=== PATIENT | female | born 1950 | race Asian ===

== ENCOUNTER 2017-09-15 18:40 | Emergency (ER) | payer SELFPAY ==
[~2017-09-15] VITALS: Ht 165.1 cm; Wt 90.9 kg
[2017-09-15 19:12] VITALS: BP 179/100
[2017-09-15 19:13] LABS: GLUCOSE,POINT OF CARE 164 MG/DL (70-110)
== END 2017-09-15 19:12 | disposition left against medical advice (07) ==
LOC: EMS 18:41
DX: Z53.21 Procedure and treatment not carried out due to patient leaving prior to being seen by health care provider (principal)
CPT/HCPCS: 82962

== ENCOUNTER 2020-01-01 14:55 | Inpatient (IN) | payer OTHER ==
[~2020-01-01] VITALS: Ht 160 cm; Wt 82.5 kg
[2020-01-01] MEDS ORDERED: NITR0.3T12 SL (15:19)
[2020-01-01] MEDS ORDERED: ATOR40TA28 PO (15:19)
[2020-01-01] MEDS ORDERED: ASPI-728 PO (15:19)
[2020-01-01] MEDS ORDERED: GLIP10 PO (15:19)
[2020-01-01] MEDS ORDERED: CLOP75TA3 PO (15:19)
[2020-01-01] MEDS ORDERED: MECL-169 PO (15:19)
[2020-01-01] MEDS ORDERED: ACET500C4 PO (15:19)
[2020-01-01] MEDS ORDERED: GABA-1181 PO (15:19)
[2020-01-01] MEDS ORDERED: LISI-662 PO (15:19)
[2020-01-01] MEDS ORDERED: PANTOPRAZOLE SODIUM 40 MG/VIAL IVP ONE (15:45)
[2020-01-01 16:04] LABS: BASOPHILS % (AUTO) 1.2 % (0.0-2.0); HEMATOCRIT 42.1 % (36-46); HEMOGLOBIN 13.2 g/dL (12.0-16.0); LYMPHOCYTES # (AUTO) 1.6 K/uL (1.0-4.8); LYMPHOCYTES % (AUTO) 27.4 % (22.0-44.0); MEAN CORPUSCULAR HEMOGLOBIN 24.5 pg (26.0-34.0); MEAN CORPUSCULAR HGB CONC 31.5 G/dL (31.0-37.0); MEAN CORPUSCULAR VOLUME 78 fL (80-100); MONOCYTES # (AUTO) 0.4 K/uL (0.1-1.0); MONOCYTES % (AUTO) 7.4 % (2.0-9.0); NEUTROPHILS # (AUTO) 3.6 K/uL (1.8-7.7); PLATELET COUNT (AUTO) 240 K/uL (150-450); RED CELL DISTRIBUTION WIDTH 14.8 % (11.5-14.5)
[2020-01-01 16:09] LABS: ANION GAP 9 mmol/L (8-16); CALCIUM, TOTAL 8.6 mg/dL (8.8-10.5); CARBON DIOXIDE 29 mmol/L (22-29); CHLORIDE 107 mmol/L (98-107); CREATININE 0.72 mg/dL (0.60-1.30); GLOMERULAR FILTR. RATE CALC > 60 mL/min (>60); GLUCOSE,RANDOM 147 mg/dL (70-110); POTASSIUM 3.8 mmol/L (3.5-5.1); SODIUM SERUM 145 mmol/L (136-145); UREA NITROGEN, BLOOD 14 mg/dL (7-18)
[2020-01-01 16:18] LABS: PROTHROMBIN TIME 10.1 SEC (9.4-11.6)
[2020-01-01 16:26] LABS: APPEARANCE,URINE CLEAR (CLEAR); BILIRUBIN,URINE NEGATIVE (NEGATIVE); GLUCOSE, URINE (UA) NEGATIVE (NEGATIVE); KETONES,URINE NEGATIVE (NEGATIVE); LEUKOCYTE ESTERASE ,URINE TRACE (NEGATIVE); NITRATE,URINE NEGATIVE (NEGATIVE); OCCULT BLOOD,URINE NEGATIVE (NEGATIVE); PROTEIN,URINE SEE CONFIRM (NEGATIVE)
[2020-01-01 16:29] LABS: B-TYPE NATRIURETIC PEPTIDE 608 pg/mL (0-100)
[2020-01-01] MEDS ORDERED: DILTIAZEM HCL 5 MG/ML 5 ML VIAL IVP ONE ×2 (16:30→17:15)
[2020-01-01] MEDS ORDERED: NITR0.4T52 SL (16:34)
[2020-01-01 16:35] LABS: ALANINE AMINOTRANSFERASE 19 U/L (12-78); ALBUMIN 3.7 g/dL (3.4-5.0); ALKALINE PHOSPHATASE 77 U/L (46-116); ASPARTATE AMINOTRANSFERASE 23 U/L (15-37); BILIRUBIN,TOTAL 0.4 mg/dL (0.1-1.0); CREATINE KINASE, TOTAL ONLY 90 U/L (26-192); TOTAL PROTEIN, SERUM 7.5 g/dL (6.4-8.2)
[2020-01-01 17:14] LABS: RBC,URINE None Seen /HPF (0-2); SULFOSALICYLIC ACID,URINE 4+ (Negative)
[2020-01-01 17:15] LABS: BACTERIA,URINE None Seen /HPF (None Seen); SQUAMOUS EPITHELIAL CELL,UR Rare /LPF (None Seen); WBC,URINE 0-2 /HPF (0-5)
[2020-01-01] MEDS ORDERED: ACETAMINOPHEN 325 MG TABLET PO PRN (17:15)
[2020-01-01] MEDS ORDERED: INSULIN LISPRO 100 UNITS/ML SQ PRN (17:15)
[2020-01-01] MEDS ORDERED: DEXTROSE 50%-WATER 25 GM/50 ML SYRINGE IVP PRN (17:15)
[2020-01-01 18:10] LABS: THYROID STIMULATING HORMONE 1.21 uIU/mL (0.36-3.74)
[2020-01-01] MEDS ORDERED: DILTIAZEM HCL 30 MG TABLET PO ONE (18:15)
[2020-01-01] MEDS ORDERED: DIGOXIN 250 MCG/ML 2 ML AMP IVP ONE (19:15)
[2020-01-01 19:37] VITALS: BP 143/103
[2020-01-01] MEDS: ATORVASTATIN CALCIUM 20 MG TABLET PO SCH (20:20)
[2020-01-01] MEDS: APIXABAN 5 MG TABLET PO SCH (20:20)
[2020-01-01] MEDS: POTASSIUM CHLORIDE 8 MEQ ER TABLET PO SCH (20:20)
[2020-01-01] MEDS: DOCUSATE SODIUM 100 MG CAPSULE PO SCH (20:20)
[2020-01-01] MEDS ORDERED: CARVEDILOL 12.5 MG TABLET PO SCH (21:00)
[2020-01-01 23:48] VITALS: BP 138/99
[2020-01-02 04:10] VITALS: BP 156/98
[2020-01-02 05:30] LABS: GLUCOMETER DEV NAME(LOC) 5S.2A; GLUCOSE,POINT OF CARE 159 MG/DL (70-110)
[2020-01-02 07:15] LABS: GLUCOMETER DEV NAME(LOC) 5S.2A; GLUCOSE,POINT OF CARE 112 MG/DL (70-110)
[2020-01-02 07:18] VITALS: BP 140/88
[2020-01-02 07:19] LABS: BASOPHILS % (AUTO) 0.5 % (0.0-2.0); EOSINOPHILS % (AUTO) 1.4 % (1.0-6.0); HEMATOCRIT 44.8 % (36-46); HEMOGLOBIN 13.9 g/dL (12.0-16.0); LYMPHOCYTES # (AUTO) 1.5 K/uL (1.0-4.8); LYMPHOCYTES % (AUTO) 17.3 % (22.0-44.0); MEAN CORPUSCULAR HEMOGLOBIN 24.4 pg (26.0-34.0); MEAN CORPUSCULAR HGB CONC 31.1 G/dL (31.0-37.0); MEAN CORPUSCULAR VOLUME 78 fL (80-100); MONOCYTES # (AUTO) 0.5 K/uL (0.1-1.0); MONOCYTES % (AUTO) 5.9 % (2.0-9.0); NEUTROPHILS # (AUTO) 6.5 K/uL (1.8-7.7); NEUTROPHILS % (AUTO) 74.9 % (40.0-70.0); PLATELET COUNT (AUTO) 237 K/uL (150-450); RED BLOOD CELL COUNT(AUTO) 5.72 MIL/uL (4.00-5.20); RED CELL DISTRIBUTION WIDTH 14.7 % (11.5-14.5)
[2020-01-02 07:40] LABS: ALANINE AMINOTRANSFERASE 19 U/L (12-78); ALBUMIN 4.1 g/dL (3.4-5.0); ALKALINE PHOSPHATASE 88 U/L (46-116); ANION GAP 8 mmol/L (8-16); ASPARTATE AMINOTRANSFERASE 17 U/L (15-37); BILIRUBIN,TOTAL 0.9 mg/dL (0.1-1.0); CALCIUM, TOTAL 8.8 mg/dL (8.8-10.5); CARBON DIOXIDE 30 mmol/L (22-29); CHLORIDE 102 mmol/L (98-107); CREATININE 0.85 mg/dL (0.60-1.30); GLOMERULAR FILTR. RATE CALC > 60 mL/min (>60); GLUCOSE,RANDOM 127 mg/dL (70-110); POTASSIUM 3.5 mmol/L (3.5-5.1); SODIUM SERUM 140 mmol/L (136-145); UREA NITROGEN, BLOOD 12 mg/dL (7-18)
[2020-01-02] MEDS: FAMOTIDINE 20 MG TABLET PO SCH (08:52)
[2020-01-02] MEDS: GlipiZIDE 5 MG TABLET PO SCH ×2 (08:53→18:22)
[2020-01-02] MEDS: DOCUSATE SODIUM 100 MG CAPSULE PO SCH ×2 (08:53→20:02)
[2020-01-02] MEDS: LISINOPRIL 10 MG TABLET PO SCH (08:53)
[2020-01-02] MEDS ORDERED: FUROSEMIDE 20 MG/2 ML VIAL IVP ONE (09:00)
[2020-01-02] MEDS: POTASSIUM CHLORIDE 8 MEQ ER TABLET PO SCH (10:05)
[2020-01-02] MEDS: APIXABAN 5 MG TABLET PO SCH ×2 (10:05→20:59)
[2020-01-02] MEDS: CARVEDILOL 12.5 MG TABLET PO SCH ×2 (10:29→20:02)
[2020-01-02 11:36] VITALS: BP 153/97
[2020-01-02 15:49] VITALS: BP 159/102
[2020-01-02 17:15] LABS: GLUCOMETER DEV NAME(LOC) 5N.1; GLUCOSE,POINT OF CARE 124 MG/DL (70-110)
[2020-01-02 18:47] LABS: GLUCOMETER DEV NAME(LOC) 5N.1; GLUCOSE,POINT OF CARE 107 MG/DL (70-110)
[2020-01-02 19:58] VITALS: BP 135/96
[2020-01-02] MEDS: ATORVASTATIN CALCIUM 20 MG TABLET PO SCH (20:02)
[2020-01-02 23:33] VITALS: BP 141/87
[2020-01-03 00:07] LABS: GLUCOMETER DEV NAME(LOC) 5N.3; GLUCOSE,POINT OF CARE 118 MG/DL (70-110)
[2020-01-03 04:08] VITALS: BP 125/77
[2020-01-03] MEDS: GlipiZIDE 5 MG TABLET PO SCH (07:03)
[2020-01-03 07:43] VITALS: BP 137/104
[2020-01-03] MEDS: DOCUSATE SODIUM 100 MG CAPSULE PO SCH (10:58)
[2020-01-03] MEDS: FAMOTIDINE 20 MG TABLET PO SCH (10:58)
[2020-01-03] MEDS: POTASSIUM CHLORIDE 8 MEQ ER TABLET PO SCH (10:58)
[2020-01-03] MEDS: APIXABAN 5 MG TABLET PO SCH (10:58)
[2020-01-03] MEDS: LISINOPRIL 10 MG TABLET PO SCH (10:58)
[2020-01-03] MEDS: CARVEDILOL 12.5 MG TABLET PO SCH (10:59)
[2020-01-03 12:23] LABS: GLUCOMETER DEV NAME(LOC) 5N.3; GLUCOSE,POINT OF CARE 174 MG/DL (70-110)
[2020-01-03 12:23] LABS: GLUCOMETER DEV NAME(LOC) 5N.3; GLUCOSE,POINT OF CARE 104 MG/DL (70-110)
[2020-01-03] MEDS ORDERED: APIX5TAB PO (12:25)
[2020-01-03] MEDS ORDERED: CARV25 PO (12:33)
[2020-01-03] MEDS ORDERED: SPIR25 PO (12:34)
== END 2020-01-03 14:00 | disposition home or self-care (01) | DRG 308 ==
LOC: EMS 14:56 → 5S 17:13 → UNDOADMIN 18:07 → 5S 20:06 → 5N 01-02 10:20
PROVIDERS: ADMIT Internal Medicine; ATTEND Internal Medicine
DX: I48.91 Unspecified atrial fibrillation (principal); I50.21 Acute systolic (congestive) heart failure; E11.9 Type 2 diabetes mellitus without complications; Z20.828 Contact with and (suspected) exposure to other viral communicable diseases; E78.5 Hyperlipidemia, unspecified; I25.10 Atherosclerotic heart disease of native coronary artery without angina pectoris; Z79.82 Long term (current) use of aspirin; Z88.8 Allergy status to other drugs, medicaments and biological substances; I25.2 Old myocardial infarction; Z82.49 Family history of ischemic heart disease and other diseases of the circulatory system
CPT/HCPCS: 82271; 83735; 84443; 86850; 86900; 86901; 93005; 93306; 99291; C9113; J1160; J1940; J3490

== ENCOUNTER 2021-05-07 10:58 | Emergency (ER) | payer OTHER ==
[~2021-05-07] VITALS: Ht 165.1 cm; Wt 90.0 kg
[~2021-05-07 10:58] MED LIST: APIX5TAB PO; ATOR40TA28 PO; CARV25 PO; FURO-152 PO; GLIP10 PO; LISI-894 PO; NITR0.4T52 SL; SPIR-37 PO
[2021-05-07 11:33] LABS: APPEARANCE,URINE CLEAR (CLEAR); BILIRUBIN,URINE NEGATIVE (NEGATIVE); GLUCOSE, URINE (UA) NEGATIVE (NEGATIVE); KETONES,URINE NEGATIVE (NEGATIVE); LEUKOCYTE ESTERASE ,URINE NEGATIVE (NEGATIVE); NITRATE,URINE NEGATIVE (NEGATIVE); OCCULT BLOOD,URINE NEGATIVE (NEGATIVE); PH,URINE 5.5 (5.0-8.0); PROTEIN,URINE NEGATIVE (NEGATIVE); UROBILINOGEN,URINE 0.2 mg/dL (<=1.0)
[2021-05-07 11:34] LABS: BACTERIA,URINE None Seen /HPF (None Seen); RBC,URINE None Seen /HPF (0-2); WBC,URINE None Seen /HPF (0-5)
[2021-05-07 11:59] LABS: BASOPHILS % (AUTO) 0.8 % (0.0-2.0); EOSINOPHILS % (AUTO) 1.7 % (1.0-6.0); HEMATOCRIT 41.9 % (36-46); HEMOGLOBIN 13.5 g/dL (12.0-16.0); LYMPHOCYTES # (AUTO) 1.4 K/uL (1.0-4.8); LYMPHOCYTES % (AUTO) 29.2 % (22.0-44.0); MEAN CORPUSCULAR HEMOGLOBIN 26.2 pg (26.0-34.0); MEAN CORPUSCULAR HGB CONC 32.1 G/dL (31.0-37.0); MEAN CORPUSCULAR VOLUME 82 fL (80-100); MONOCYTES # (AUTO) 0.3 K/uL (0.1-1.0); NEUTROPHILS % (AUTO) 61.3 % (40.0-70.0); PLATELET COUNT (AUTO) 216 K/uL (150-450); RED BLOOD CELL COUNT(AUTO) 5.14 MIL/uL (4.00-5.20); RED CELL DISTRIBUTION WIDTH 15.7 % (11.5-14.5)
[2021-05-07 12:10] LABS: CALCIUM, TOTAL 8.1 mg/dL (8.8-10.5); CREATININE 1.38 mg/dL (0.60-1.30); POTASSIUM 3.7 mmol/L (3.5-5.1)
[2021-05-07 12:15] LABS: ALBUMIN 3.8 g/dL (3.4-5.0); BILIRUBIN,TOTAL 0.6 mg/dL (0.1-1.0)
[2021-05-07 13:46] VITALS: BP 133/98
== END 2021-05-07 13:58 | disposition home or self-care (01) ==
LOC: EMS 10:58
DX: R51.9 Headache, unspecified (principal); R42 Dizziness and giddiness; R06.02 Shortness of breath
CPT/HCPCS: 70450; 71045; 80053; 81001; 83690; 84484; 85025; 93005; 99285; 36415-L1; 36415-TC

== ENCOUNTER 2021-05-21 15:36 | Emergency (ER) | payer OTHER ==
[~2021-05-21] VITALS: Ht 165.1 cm; Wt 90.0 kg
[2021-05-21] MEDS ORDERED: MORPHINE SULFATE 2 MG/ML SYRINGE IVP ONE (16:00)
[2021-05-21 16:16] LABS: GLUCOMETER DEV NAME(LOC) ERT.5; GLUCOSE,POINT OF CARE 78 MG/DL (70-110)
[2021-05-21 16:25] LABS: BASOPHILS % (AUTO) 0.8 % (0.0-2.0); EOSINOPHILS % (AUTO) 2.5 % (1.0-6.0); HEMATOCRIT 40.6 % (36-46); LYMPHOCYTES # (AUTO) 1.7 K/uL (1.0-4.8); LYMPHOCYTES % (AUTO) 29.8 % (22.0-44.0); MEAN CORPUSCULAR HEMOGLOBIN 26.3 pg (26.0-34.0); MEAN CORPUSCULAR VOLUME 82 fL (80-100); MONOCYTES # (AUTO) 0.5 K/uL (0.1-1.0); MONOCYTES % (AUTO) 8.9 % (2.0-9.0); NEUTROPHILS # (AUTO) 3.4 K/uL (1.8-7.7); PLATELET COUNT (AUTO) 219 K/uL (150-450); RED BLOOD CELL COUNT(AUTO) 4.93 MIL/uL (4.00-5.20); RED CELL DISTRIBUTION WIDTH 15.7 % (11.5-14.5)
[2021-05-21 16:34] LABS: CREATININE 1.41 mg/dL (0.60-1.30)
[2021-05-21 16:40] LABS: ALBUMIN 3.8 g/dL (3.4-5.0); BILIRUBIN,TOTAL 0.4 mg/dL (0.1-1.0); TOTAL PROTEIN, SERUM 7.5 g/dL (6.4-8.2)
[2021-05-21 16:46] LABS: LACTIC ACID 0.9 mmol/L (0.4-2.0)
[2021-05-21 17:53] VITALS: BP 140/81
== END 2021-05-21 18:04 | disposition home or self-care (01) ==
LOC: EMS 15:41
DX: R10.13 Epigastric pain (principal); R19.7 Diarrhea, unspecified; R11.0 Nausea; I48.91 Unspecified atrial fibrillation; I25.10 Atherosclerotic heart disease of native coronary artery without angina pectoris; E11.9 Type 2 diabetes mellitus without complications; I25.2 Old myocardial infarction; I10 Essential (primary) hypertension; Z86.73 Personal history of transient ischemic attack (TIA), and cerebral infarction without residual deficits; Z88.8 Allergy status to other drugs, medicaments and biological substances; Z79.899 Other long term (current) drug therapy
CPT/HCPCS: 36415; 71045; 74176; 80053; 82962; 83605; 83690; 84484; 85025; 93005; 96374; 99285; J2270

== ENCOUNTER 2021-09-06 15:55 | Emergency (ER) | payer OTHER ==
[~2021-09-06] VITALS: Ht 165.1 cm; Wt 83.6 kg
[2021-09-06 16:27] VITALS: BP 103/67
[2021-09-06] MEDS ORDERED: CYCLOBENZAPRINE HCL 10 MG TABLET PO ONE (16:30)
[2021-09-06] MEDS ORDERED: LIDOCAINE 5% TRANSDERMAL PATCH TD ONE (16:30)
[2021-09-06] MEDS ORDERED: KETOROLAC TROMETHAMINE 30 MG/ML VIAL IM ONE (16:30)
[2021-09-06] MEDS ORDERED: CYCL10TA17 PO (17:34)
== END 2021-09-06 18:05 | disposition home or self-care (01) ==
LOC: EMS 15:58
DX: M62.838 Other muscle spasm (principal); M54.6 Pain in thoracic spine; M54.2 Cervicalgia; I48.91 Unspecified atrial fibrillation; I25.10 Atherosclerotic heart disease of native coronary artery without angina pectoris; E11.9 Type 2 diabetes mellitus without complications; I10 Essential (primary) hypertension; I25.2 Old myocardial infarction; Z79.899 Other long term (current) drug therapy
CPT/HCPCS: 82962; 96372; 99283; J1885

== ENCOUNTER 2022-03-19 04:10 | Emergency (ER) | payer OTHER ==
[~2022-03-19] VITALS: Ht 165.1 cm; Wt 83.6 kg
[~2022-03-19 04:10] MED LIST changes: +CYCL-448 PO; -GLIP10 PO; +GLIP10TA10 PO
[2022-03-19] MEDS ORDERED: DiphenhydrAMINE HCL 50 MG/ML VIAL IM ONE (06:15)
[2022-03-19] MEDS ORDERED: PredniSONE 20 MG TABLET PO ONE (06:15)
[2022-03-19] MEDS ORDERED: PRED-554 PO (07:21)
[2022-03-19] MEDS ORDERED: DIPH25TA51 PO (07:21)
[2022-03-19 07:22] VITALS: BP 123/68
== END 2022-03-19 07:00 | disposition home or self-care (01) ==
LOC: EMS 04:11
DX: L50.9 Urticaria, unspecified (principal); E11.9 Type 2 diabetes mellitus without complications; I10 Essential (primary) hypertension; I25.10 Atherosclerotic heart disease of native coronary artery without angina pectoris; I48.91 Unspecified atrial fibrillation; Z88.8 Allergy status to other drugs, medicaments and biological substances
CPT/HCPCS: 99283; 96372; J1200; J7512

== ENCOUNTER 2023-09-29 11:07 | Emergency (ER) | payer OTHER ==
[~2023-09-29] VITALS: Ht 160 cm; Wt 90.9 kg
[~2023-09-29 11:07] MED LIST changes: +DIPH25TA51 PO; +PRED-554 PO
[2023-09-29 11:09] VITALS: TEMP 98.7
[2023-09-29] MEDS ORDERED: XALA2.5OS OU (11:24)
[2023-09-29] MEDS ORDERED: POTA-189 PO (11:24)
[2023-09-29 11:50] LABS: APPEARANCE,URINE CLEAR (CLEAR); BILIRUBIN,URINE NEGATIVE (NEGATIVE); COLOR,URINE LIGHT YELLOW (YELLOW); GLUCOSE, URINE (UA) TRACE mg/dL (NEGATIVE); KETONES,URINE NEGATIVE (NEGATIVE); LEUKOCYTE ESTERASE ,URINE NEGATIVE (NEGATIVE); NITRATE,URINE NEGATIVE (NEGATIVE); OCCULT BLOOD,URINE NEGATIVE (NEGATIVE); PROTEIN,URINE NEGATIVE (NEGATIVE); SPECIFIC GRAVITIY, URINE 1.012 (1.003-1.030); UROBILINOGEN,URINE <=1.0 mg/dL (<=1.0)
[2023-09-29 11:58] LABS: BASOPHILS % (AUTO) 0.6 % (0.0-2.0); EOSINOPHILS % (AUTO) 3.1 % (1.0-6.0); HEMATOCRIT 41.2 % (36-46); HEMOGLOBIN 13.3 g/dL (12.0-16.0); LYMPHOCYTES # (AUTO) 1.6 K/uL (1.0-4.8); LYMPHOCYTES % (AUTO) 23.5 % (22.0-44.0); MEAN CORPUSCULAR HEMOGLOBIN 25.1 pg (26.0-34.0); MEAN CORPUSCULAR HGB CONC 32.3 G/dL (31.0-37.0); MEAN CORPUSCULAR VOLUME 78 fL (80-100); MONOCYTES # (AUTO) 0.4 K/uL (0.1-1.0); MONOCYTES % (AUTO) 6.1 % (2.0-9.0); NEUTROPHILS # (AUTO) 4.5 K/uL (1.8-7.7); NEUTROPHILS % (AUTO) 66.7 % (40.0-70.0); PLATELET COUNT (AUTO) 204 K/uL (150-450); RED CELL DISTRIBUTION WIDTH 15.7 % (11.5-14.5); WHITE BLOOD COUNT (AUTO) 6.7 K/uL (4.5-11.0)
[2023-09-29 12:06] LABS: CALCIUM, TOTAL 8.6 mg/dL (8.8-10.5); CREATININE 1.75 mg/dL (0.60-1.30); POTASSIUM 3.8 mmol/L (3.5-5.1)
[2023-09-29 12:09] LABS: INR 1.1 (0.9-1.1); PROTHROMBIN TIME 11.4 SEC (9.4-11.6)
[2023-09-29 12:12] LABS: ALBUMIN 3.3 g/dL (3.4-5.0); BILIRUBIN,TOTAL 0.3 mg/dL (0.1-1.0); TOTAL PROTEIN, SERUM 7.7 g/dL (6.4-8.2)
[2023-09-29 12:14] LABS: TROPONIN I-HIGH SENSITIVITY 8 ng/L (<51)
[2023-09-29 13:23] LABS: RBC MORPHOLOGY COMMENT ABNORMAL RBC MORPH
[2023-09-29 13:32] VITALS: BP 168/87; PULSE 90; RESP 20
[2023-09-29 13:43] LABS: TROPONIN I-HIGH SENSITIVITY 10 ng/L (<51)
== END 2023-09-29 14:15 | disposition home or self-care (01) ==
LOC: EMS 11:07
DX: E86.0 Dehydration (principal); R06.02 Shortness of breath; E11.9 Type 2 diabetes mellitus without complications; I25.10 Atherosclerotic heart disease of native coronary artery without angina pectoris; I10 Essential (primary) hypertension; Z88.8 Allergy status to other drugs, medicaments and biological substances
CPT/HCPCS: 71045; 80053; 81003; 82550; 82962; 83880; 84484; 85025; 85610; 85730; 93005; 99285; 36415-L1; 36415-TC

== ENCOUNTER 2025-02-19 18:06 | Inpatient (IN) | payer OTHER ==
[~2025-02-19] VITALS: Ht 165.1 cm; Wt 82.4 kg
[~2025-02-19 18:06] MED LIST changes: +ATOR-2 PO; -ATOR40TA28 PO; -CYCL-448 PO; -DIPH25TA51 PO; +ENAL-89 PO; +GABA-1181 PO; -GLIP10TA10 PO; +GLIP10TA17 PO; -LISI-894 PO; -PRED-554 PO; -SPIR-37 PO; +XALA2.5OS OU
[2025-02-19 18:36] LABS: GLUCOMETER DEV NAME(LOC) ER.7; GLUCOSE,POINT OF CARE 129 MG/DL (70-110)
[2025-02-19 18:38] LABS: PLATELET COUNT (AUTO) 218 K/uL (150-450); RED BLOOD CELL COUNT(AUTO) 4.66 MIL/uL (4.00-5.20); RED CELL DISTRIBUTION WIDTH 17.3 % (11.5-14.5); WHITE BLOOD COUNT (AUTO) 5.9 K/uL (4.5-11.0)
[2025-02-19 18:44] LABS: CALCIUM, TOTAL 8.0 mg/dL (8.8-10.5); CREATININE 1.62 mg/dL (0.60-1.30); GLOMERULAR FILTR. RATE CALC 31 mL/min (>60); GLUCOSE,RANDOM 138 mg/dL (70-110); SODIUM SERUM 136 mmol/L (136-145); UREA NITROGEN, BLOOD 29 mg/dL (7-18)
[2025-02-19 18:52] LABS: TROPONIN I-HIGH SENSITIVITY 12 ng/L (<51)
[2025-02-19 20:53] LABS: TROPONIN I-HIGH SENSITIVITY 13 ng/L (<51)
[2025-02-19 20:54] LABS: LACTIC ACID 1.8 mmol/L (0.4-2.0)
[2025-02-19] MEDS ORDERED: ZOLPIDEM TARTRATE 5 MG TABLET PO PRN (22:45)
[2025-02-19] MEDS ORDERED: ONDANSETRON HCL 4 MG/2 ML VIAL IVP PRN (22:45)
[2025-02-19] MEDS ORDERED: HYDROCODONE/ACETAMINOPHEN 5-325 MG TABLET PO PRN (22:45)
[2025-02-19] MEDS ORDERED: NITROGLYCERIN 0.4 MG SUBLINGUAL TABLET #25 SL PRN (22:45)
[2025-02-19] MEDS ORDERED: MORPHINE SULFATE 2 MG/ML SYRINGE IVP PRN (22:45)
[2025-02-19] MEDS: CefTRIAXone 1 GM/DEXTROSE 50 ML IV ONE (23:06)
[2025-02-20] VITALS (7 sets, daily range): BP systolic 124–153; BP diastolic 98–123; PULSE 83–108; RESP 18–22; TEMP 96.5–98; O2SAT 95–98
[2025-02-20] MEDS: HEPARIN SODIUM,PORCINE 5,000 UNITS/ML VIAL SQ SCH (00:48)
[2025-02-20] MEDS ORDERED: 0.9% SODIUM CHLORIDE 5 ML NEB SOLUTION NEB ONE (01:31)
[2025-02-20 06:25] LABS: PLATELET COUNT (AUTO) 233 K/uL (150-450); RED BLOOD CELL COUNT(AUTO) 4.93 MIL/uL (4.00-5.20); RED CELL DISTRIBUTION WIDTH 17.4 % (11.5-14.5); WHITE BLOOD COUNT (AUTO) 5.4 K/uL (4.5-11.0)
[2025-02-20 06:37] LABS: CALCIUM, TOTAL 8.1 mg/dL (8.8-10.5); CREATININE 1.68 mg/dL (0.60-1.30); GLOMERULAR FILTR. RATE CALC 30.0 mL/min (>60); GLUCOSE,RANDOM 164.0 mg/dL (70-110); SODIUM SERUM 138.0 mmol/L (136-145); UREA NITROGEN, BLOOD 28.0 mg/dL (7-18)
[2025-02-20] MEDS: ATORVASTATIN CALCIUM 40 MG TABLET PO SCH (08:41)
[2025-02-20] MEDS: FUROSEMIDE 20 MG TABLET PO SCH (08:41)
[2025-02-20] MEDS: APIXABAN 5 MG TABLET PO SCH (08:41)
[2025-02-20] MEDS: PANTOPRAZOLE SODIUM 40 MG DR TABLET PO SCH (08:41)
[2025-02-20] MEDS: ENALAPRIL MALEATE 10 MG TABLET PO SCH (08:41)
[2025-02-20] MEDS ORDERED: DEXTROSE 50%-WATER 25 GM/50 ML SYRINGE IVP PRN (11:30)
[2025-02-20] MEDS: AMIODARONE HCL 150 MG in DEXTROSE 5%-WATER 97 ML IV ONE (12:32)
[2025-02-20] MEDS: AMIODARONE HCL 360 MG in DEXTROSE 5%-WATER 242.8 ML IV ONE (13:14)
[2025-02-20] MEDS: INSULIN LISPRO 100 UNITS/ML SQ PRN (14:04)
[2025-02-20] MEDS: AMIODARONE HCL 540 MG in DEXTROSE 5%-WATER 250 ML IV ONE (18:28)
[2025-02-20] MEDS: LATANOPROST 0.005% 2.5 ML OPHTHALMIC SOLUTION OU SCH (20:44)
[2025-02-20] MEDS: ALBUTEROL SULFATE 2.5 MG/0.5 ML NEB SOLUTION NEB PRN (21:12)
[2025-02-20] MEDS: IPRATROPIUM BROMIDE 0.5 MG/2.5 ML NEB SOLUTION NEB PRN (21:12)
[2025-02-20] MEDS ORDERED: SODIUM CHLORIDE 0.9% 500 ML IV ONE (23:20)
[2025-02-20] MEDS: CefTRIAXone 1 GM/DEXTROSE 50 ML IV SCH (23:28)
[2025-02-21] VITALS (8 sets, daily range): BP systolic 141–163; BP diastolic 92–124; PULSE 88–106; RESP 18–20; TEMP 97.3–97.7; O2SAT 94–98
[2025-02-21 02:26] LABS: GLUCOMETER DEV NAME(LOC) 5S.1D; GLUCOSE,POINT OF CARE 72 MG/DL (70-110)
[2025-02-21 02:26] LABS: GLUCOMETER DEV NAME(LOC) 5S.1D; GLUCOSE,POINT OF CARE 195 MG/DL (70-110)
[2025-02-21 02:35] LABS: GLUCOMETER DEV NAME(LOC) 5S.2D; GLUCOSE,POINT OF CARE 228 MG/DL (70-110)
[2025-02-21 07:53] LABS: CALCIUM, TOTAL 8.5 mg/dL (8.8-10.5); CREATININE 1.58 mg/dL (0.60-1.30); GLOMERULAR FILTR. RATE CALC 32.0 mL/min (>60); GLUCOSE,RANDOM 113.0 mg/dL (70-110); SODIUM SERUM 140.0 mmol/L (136-145); UREA NITROGEN, BLOOD 25.0 mg/dL (7-18)
[2025-02-21 08:10] LABS: GLUCOMETER DEV NAME(LOC) 5S.1D; GLUCOSE,POINT OF CARE 109 MG/DL (70-110)
[2025-02-21 08:16] LABS: PLATELET COUNT (AUTO) 230 K/uL (150-450); RED BLOOD CELL COUNT(AUTO) 4.91 MIL/uL (4.00-5.20); RED CELL DISTRIBUTION WIDTH 17.5 % (11.5-14.5); WHITE BLOOD COUNT (AUTO) 6.1 K/uL (4.5-11.0)
[2025-02-21] MEDS: MAGNESIUM HYDROXIDE SUSPENSION 30 ML UDCUP PO PRN (11:54)
[2025-02-21] MEDS ORDERED: AMIODARONE HCL 750 MG in DEXTROSE 5%-WATER 485 ML IV SCH (12:00)
[2025-02-21] MEDS: DIGOXIN 250 MCG/ML 2 ML AMP IVP ONE (12:46)
[2025-02-21] MEDS: AMIODARONE HCL 200 MG TABLET PO SCH (12:52)
[2025-02-21 15:26] LABS: GLUCOMETER DEV NAME(LOC) 5S.1D; GLUCOSE,POINT OF CARE 197 MG/DL (70-110)
[2025-02-21] MEDS: BISACODYL 10 MG RECTAL RECTAL SUPPOSITORY PR PRN (16:19)
[2025-02-21 21:20] LABS: GLUCOMETER DEV NAME(LOC) 5S.2D; GLUCOSE,POINT OF CARE 102 MG/DL (70-110)
[2025-02-22] VITALS: BP 135/99; PULSE 71; RESP 18; TEMP 97.3; O2SAT 92
[2025-02-22 04:00] VITALS: BP 146/91; PULSE 73; RESP 18; TEMP 97.3; O2SAT 97
[2025-02-22 05:26] LABS: GLUCOMETER DEV NAME(LOC) 5S.1D; GLUCOSE,POINT OF CARE 163 MG/DL (70-110)
[2025-02-22 06:57] LABS: PLATELET COUNT (AUTO) 232 K/uL (150-450); RED BLOOD CELL COUNT(AUTO) 5.09 MIL/uL (4.00-5.20); RED CELL DISTRIBUTION WIDTH 17.6 % (11.5-14.5); WHITE BLOOD COUNT (AUTO) 5.9 K/uL (4.5-11.0)
[2025-02-22 07:06] LABS: CALCIUM, TOTAL 8.2 mg/dL (8.8-10.5); CREATININE 1.66 mg/dL (0.60-1.30); GLOMERULAR FILTR. RATE CALC 30.0 mL/min (>60); GLUCOSE,RANDOM 74.0 mg/dL (70-110); SODIUM SERUM 142.0 mmol/L (136-145); UREA NITROGEN, BLOOD 21.0 mg/dL (7-18)
[2025-02-22 08:18] VITALS: BP 157/112; PULSE 75; RESP 19; TEMP 98; O2SAT 99
[2025-02-22 10:01] LABS: GLUCOMETER DEV NAME(LOC) 5S.1D; GLUCOSE,POINT OF CARE 78 MG/DL (70-110)
[2025-02-22 11:05] VITALS: BP 132/69; PULSE 67; RESP 18; TEMP 97.3; O2SAT 96
[2025-02-22 11:55] LABS: GLUCOMETER DEV NAME(LOC) 5S.1D; GLUCOSE,POINT OF CARE 160 MG/DL (70-110)
[2025-02-22 14:55] VITALS: BP 140/78; PULSE 72; RESP 19; TEMP 97.8; O2SAT 97
[2025-02-22 17:36] LABS: GLUCOMETER DEV NAME(LOC) 5S.2D; GLUCOSE,POINT OF CARE 133 MG/DL (70-110)
[2025-02-22 20:12] VITALS: BP 135/96; PULSE 78; RESP 19; TEMP 97.7; O2SAT 98
[2025-02-23 00:16] VITALS: BP 111/97; PULSE 111; RESP 20; TEMP 98.1; O2SAT 95
[2025-02-23] MEDS: ACETAMINOPHEN 325 MG TABLET PO PRN (00:33)
[2025-02-23 01:00] VITALS: PULSE 91; RESP 18; O2SAT 98
[2025-02-23 02:01] LABS: GLUCOMETER DEV NAME(LOC) 5S.2D; GLUCOSE,POINT OF CARE 85 MG/DL (70-110)
[2025-02-23 05:42] VITALS: BP 127/96; PULSE 90; RESP 19; TEMP 97.7; O2SAT 95
[2025-02-23 06:35] LABS: GLUCOMETER DEV NAME(LOC) 5S.2D; GLUCOSE,POINT OF CARE 72 MG/DL (70-110)
[2025-02-23 09:00] VITALS: BP 118/73; PULSE 91; RESP 18; TEMP 98.1; O2SAT 94
[2025-02-23] MEDS ORDERED: AMIO200T74 PO (11:26)
[2025-02-23] MEDS ORDERED: CARV25 PO (11:26)
[2025-02-23] MEDS ORDERED: AMLO-258 PO (11:26)
[2025-02-23 12:21] LABS: GLUCOMETER DEV NAME(LOC) 5S.2D; GLUCOSE,POINT OF CARE 96 MG/DL (70-110)
[2025-02-23 12:38] VITALS: BP 119/82; PULSE 93; RESP 18; TEMP 98.1; O2SAT 96
== END 2025-02-23 14:20 | disposition home or self-care (01) | DRG 178 ==
LOC: EMS 18:06 → EDH 22:45 → 5S 02-20 01:00
PROVIDERS: ADMIT Hospitalist; ATTEND Hospitalist
DX: J15.69 Pneumonia due to other Gram-negative bacteria (principal); I48.20 Chronic atrial fibrillation, unspecified; I25.5 Ischemic cardiomyopathy; E78.5 Hyperlipidemia, unspecified; E11.40 Type 2 diabetes mellitus with diabetic neuropathy, unspecified; F03.90 Unspecified dementia, unspecified severity, without behavioral disturbance, psychotic disturbance, mood disturbance, and anxiety; R11.2 Nausea with vomiting, unspecified; I11.0 Hypertensive heart disease with heart failure; I25.10 Atherosclerotic heart disease of native coronary artery without angina pectoris; Z86.73 Personal history of transient ischemic attack (TIA), and cerebral infarction without residual deficits; Z79.899 Other long term (current) drug therapy; I25.2 Old myocardial infarction; Z79.01 Long term (current) use of anticoagulants
CPT/HCPCS: 71045; 80048; 82550; 82962; 83605; 83880; 84439; 84443; 84484; 85025; 85610; 85730; 87040; 93005; 93306; 94640; 94760; 99285; G0378; J0282; J0696; J1160; J1644; J2405; J7040; J7060; 36415-L1; 36415-TC; J7613